=== PATIENT | male | born 1965 | race Hispanic/Latino ===

== ENCOUNTER 2019-01-02 03:20 | Emergency (ER) | payer OTHER ==
[2019-01-02 03:40] VITALS: BP 142/80; PULSE 80; RESP 16; TEMP 98; O2SAT 99
--- NOTE | 2019-01-02 04:09 | ED PDOC ---
HPI: Skin/Bite Injury Time Seen by Provider: 01/02/19 03:31 Chief Complaint (Nursing): Abnormal Skin Integrity History Per: Patient History/Exam Limitations: no limitations Onset/Duration Of Symptoms: Days (1 year) Additional Complaint(s): 53 year old with hx of "atopic dermatitis" presenting with rash to abdomen, antecubital and popliteal fossa's. States he takes warm showers that make them itch more. States he's using topical steroid cream. Denies fevers. States he has not seen an ordained minister for this in a year. States he is scratching today so much that the skin is cracking. Past Medical History Reviewed: Historical Data, Nursing Documentation, Vital Signs Vital Signs: Last Vital Signs Temp 98.0 F 01/02/19 03:38 Pulse 80 01/02/19 03:38 Resp 16 01/02/19 03:38 BP 142/80 01/02/19 03:38 Pulse Ox 99 01/02/19 03:38 - Medical History Other PMH: Eczema/Atopic Dermatitis - Surgical History Surgical History: Appendectomy - Family History Family History: States: Unknown Family Hx - Home Medications Home Medications: Ambulatory Orders Medication Instructions Recorded Cyclobenzaprine [Flexeril] 5 mg PO Q8H PRN #21 tab 07/25/18 Colloidal Oatmeal [Eucerin Eczema 226 gm TP TID #1 cream..g. 01/02/19 Relief] - Allergies Allergies/Adverse Reactions: Allergies Allergy/AdvReac Type Severity Reaction Status Date / Time No Known Allergies Allergy Verified 07/25/18 22:22 Review of Systems ROS Statement: Except As Marked, All Systems Reviewed And Found Negative Skin: Positive for: Rash Physical Exam - Reviewed Nursing Documentation Reviewed: Yes Vital Signs Reviewed: Yes - Physical Exam Appears: Positive for: Well, Non-toxic, No Acute Distress Skin: Positive for: Rash (Scaling minimally erythematous rash to popliteal, antecubital fossae and abdomen) - ECG O2 Sat by Pulse Oximetry: 99 Pulse Ox Interpretation: Normal Medical Decision Making Medical Decision Making: PAtietn with acute on chronic flareup of eczema -Recommend eucerin, benadryl for itching -Will give referral to hotel lobby concierge Disposition - Clinical Impression Clinical Impression: Eczema - Patient ED Disposition Is Patient to be Admitted: No - Disposition Referrals: Daniel Vega MD [Staff Provider] - Disposition: Routine/Home Disposition Time: 04:15 Condition: GOOD Prescriptions: Colloidal Oatmeal [Eucerin Eczema Relief] 226 gm TP TID #1 cream..g. Instructions: Eczema (Atopic Dermatitis)
== END 2019-01-02 04:40 | disposition home or self-care (01) ==
LOC: H.ER 03:20
DX: L30.9 Dermatitis, unspecified (principal)